=== PATIENT | female | born 1970 | race American Indian/Alaskan Native ===

== ENCOUNTER 2018-01-01 11:18 | Emergency (ER) | payer OTHER ==
--- NOTE | 2018-01-01 14:05 | Emergency Department Report ---
Chief Complaint: Dizziness Stated Complaint: POSS HIGH BP/DIZZINESS Time Seen by Provider: 01/01/18 14:00 - HPI History of Present Illness: 47-year-old female presents to the emergency department with complaint of a posterior headache and some dizziness. On Monday, 3 days ago, the patient was driving when she felt like she "blacked out for a second." She pulled up beside the road and and was able to get home. She spent the weekend trying to relax. However the headache continued and has not returned and has been throbbing ever since. She thought it could've been her blood pressure but it was not too elevated when she got here today. She has a history of insulin- dependent diabetes and said her blood sugar was about 200 prior to arrival today. She drove herself in to be seen. - ROS Review of Systems: Positive for headache, dizziness Negative for vision change, slurred speech, chest pain, shortness breath, fever - Exam Vital Signs: Vital Signs 01/01/18 12:03 Temperature 98.2 F Pulse Rate 79 Respiratory 19 Rate Blood Pressure 146/87 O2 Sat by Pulse 100 Oximetry Physical Exam: She is awake and alert in no acute distress. Pupils equal reactive to light bilaterally. Extraocular motion intact. Heart and lung sounds are normal auscultation. MSE screening note: Focused history and physical exam performed. Due to findings the following was ordered: I have ordered a CBC, BMP, TSH and a CT scan of the head. She'll have an EKG. ED Disposition for MSE Condition: Stable Referrals: PRIMARY CARE, [Primary Care Provider] - 3-5 Days
[2018-01-01 14:22] LABS: Basophils # (Auto) 0.1 K/mm3 (0.0-0.1); Basophils % (Auto) 0.7 % (0.0-1.8); Eosinophils # (Auto) 0.2 K/mm3 (0.0-0.4); Eosinophils % (Auto) 2.7 % (0.0-4.3); Hematocrit 37.1 % (30.3-42.9); Lymphocytes # (Auto) 3.2 K/mm3 (1.2-5.4); Lymphocytes % (Auto) 37.4 % (13.4-35.0); Mean Corpuscular HGB Conc 32 % (30-34); Mean Corpuscular Volume 74 fl (79-97); Monocytes # (Auto) 0.5 K/mm3 (0.0-0.8); Monocytes % (Auto) 5.7 % (0.0-7.3); Platelet Count 312 K/mm3 (140-440); Red Blood Count 5.01 M/mm3 (3.65-5.03); Red Cell Distribution Width 16.4 % (13.2-15.2)
[2018-01-01 14:27] LABS: Mean Corpuscular Hemoglobin 24 pg (28-32)
[2018-01-01 14:44] LABS: BUN/Creatinine Ratio 20; Blood Urea Nitrogen 6 mg/dL (7-17); Hemolysis Index 5
--- NOTE | 2018-01-01 15:02 | Cat Scan Report ---
CT HEAD WITHOUT CONTRAST: HISTORY: Headache, dizziness. TECHNIQUE: Sequential 2.5mm CT images. COMPARISON: none. FINDINGS: Cerebral Parenchyma: Chronic focal infarct in the anterior right basal ganglia measures 2.1 x 1.5 cm. The remaining brain parenchyma is within normal limits. The john-white interface is well-defined. Cerebellum: Within normal limits. Brainstem: Within normal limits. Ventricles: Normal. Sella: Normal. Extra-axial spaces: Normal. Basal Cisterns: Normal. Intracranial Hemorrhage: None. Midline Shift: None. Calvarium: Normal. Sinuses: Normal. Mastoid Air Cells: Normal. Visualized Orbits: Normal. IMPRESSION: No acute intracranial process. Chronic infarct in the right anterior basal ganglia.
[2018-01-01] MEDS ORDERED: TORADOL IM ONE (15:09)
--- NOTE | 2018-01-01 15:30 | Emergency Department Report ---
HPI - General Chief Complaint: Dizziness Time Seen by Provider: 01/01/18 14:00 - HPI HPI: 47-year-old female presents to the emergency department with complaint of a posterior headache and some dizziness. On Monday, 3 days ago, the patient was driving when she felt like she "blacked out for a second." She pulled up beside the road and and was able to get home. She spent the weekend trying to relax. However the headache continued while driving on her way to work today a has been throbbing ever since. It is 5 out of 10 in intensity. She thought it could've been due to her blood pressure but it was not too elevated when she got here today. She has a history of insulin-dependent diabetes and said her blood sugar was about 200 prior to arrival today. She drove herself in to be seen. ED Past Medical Hx - Past Medical History Previous Medical History?: Yes Hx Diabetes: Yes - Surgical History Past Surgical History?: Yes Additional Surgical History: Tubal ligation,Utrine ablation,Gallbladder - Social History Smoking Status: Never Smoker Substance Use Type: None - Medications Home Medications: Home Medications Medication Instructions Recorded Confirmed Last Taken Type HYDROcodone/APAP 5-325 [Frederic 1 each PO Q6HR PRN #8 tablet 01/01/18 Unknown Rx 5/325] ED Review of Systems ROS: Stated complaint: POSS HIGH BP/DIZZINESS Other details as noted in HPI Comment: All other systems reviewed and negative Constitutional: denies: chills, fever Eyes: denies: eye pain, eye discharge, vision change ENT: denies: ear pain, throat pain Respiratory: denies: cough, shortness of breath, wheezing Cardiovascular: denies: chest pain, palpitations Gastrointestinal: denies: abdominal pain, nausea, diarrhea Genitourinary: denies: urgency, dysuria, discharge Musculoskeletal: denies: back pain, joint swelling, arthralgia Skin: denies: rash, lesions Neurological: headache, other (dizziness) Physical Exam - Physical Exam Vital Signs: Vital Signs 01/01/18 12:03 Temperature 98.2 F Pulse Rate 79 Respiratory 19 Rate Blood Pressure 146/87 O2 Sat by Pulse 100 Oximetry Physical Exam: GENERAL: The patient is well-developed well-nourished. HENT: Normocephalic. Atraumatic. Patient has moist mucous membranes. EYES: Extraocular motions are intact. Pupils equal reactive to light bilaterally. No nystagmus. NECK: Supple. Trachea is midline. CHEST/LUNGS: Clear to auscultation. There is no respiratory distress noted. HEART/CARDIOVASCULAR: Regular. There is no tachycardia. There is no murmur. ABDOMEN: Abdomen is soft, nontender. Patient has normal bowel sounds. There is no abdominal distention. SKIN: Skin is warm and dry. NEURO: The patient is awake, alert, and oriented. The patient is cooperative. The patient has no focal neurologic deficits. The patient has normal speech and gait. Cranial nerves II through XII grossly intact. MUSCULOSKELETAL: There is no tenderness or deformity. There is no limitation range of motion. There is no evidence of acute injury. ED Course Vital Signs 01/01/18 12:03 Temperature 98.2 F Pulse Rate 79 Respiratory 19 Rate Blood Pressure 146/87 O2 Sat by Pulse 100 Oximetry ED Medical Decision Making - Lab Data Result diagrams: 01/01/18 14:13 01/01/18 14:13 - EKG Data -: EKG Interpreted by Sd EKG shows normal: sinus rhythm (with PACs), axis, intervals, QRS complexes, ST- T waves Rate: normal - EKG Data When compared to previous EKG there are: previous EKG unavailable Interpretation: normal EKG - Radiology Data Radiology results: report reviewed CT HEAD WITHOUT CONTRAST: HISTORY: Headache, dizziness. TECHNIQUE: Sequential 2.5mm CT images. COMPARISON: none. FINDINGS: Cerebral Parenchyma: Chronic focal infarct in the anterior right basal ganglia measures 2.1 x 1.5 cm. The remaining brain parenchyma is within normal limits. The john-white interface is well-defined. Cerebellum: Within normal limits. Brainstem: Within normal limits. Ventricles: Normal. Sella: Normal. Extra-axial spaces: Normal. Basal Cisterns: Normal. Intracranial Hemorrhage: None. Midline Shift: None. Calvarium: Normal. Sinuses: Normal. Mastoid Air Cells: Normal. Visualized Orbits: Normal. IMPRESSION: No acute intracranial process. Chronic infarct in the right anterior basal ganglia. Transcribed By: TTR Dictated By: YANIRA CAMPBELL JR, MD Electronically Authenticated By: YANIRA CAMPBELL JR, MD Signed Date/Time: 01/01/18 7610 - Medical Decision Making Patient comes into the emergency department with a complaint of a throbbing posterior headache. A few days ago she had some nonspecific episode where she may have passed out or "blacked out" for a few seconds and had some dizziness at that time but the dizziness has since resolved. On examination she does not have any focal, motor or sensory deficits in her cranial nerves are intact. Labs are unremarkable including no signs of infection, electrolyte abnormalities , renal insufficiency. The blood sugar is reasonable despite her diabetes at 150. Normal thyroid function. EKG does not show any signs of ST elevation GA, ischemia or dysrhythmia. CT of the head does not show any acute bleed, shift, mass but does show an incidental finding of a chronic right basal ganglion infarct. These results were discussed with the patient and she understands that there is no sign of any acute bleed or any acute CVA. Her headache is down to about a 5 out of 10 prior to getting any medication or treatment for it. Once the CT results did not show any bleed she was given a shot of Toradol and given a prescription for home for some pain medication. She was given a referral for neurology to evaluate her headaches but she was encouraged to return to the emergency department immediately with any worsening of her symptoms, any neurological deficits or with any acute distress. She understands and agrees to the plan. - Differential Diagnosis tension headache, migraine, cluster headache, brain bleed Critical Care Time: No Critical care attestation.: If time is entered above; I have spent that time in minutes in the direct care of this critically ill patient, excluding procedure time. ED Disposition Clinical Impression: Headache Qualifiers: Headache type: unspecified Headache chronicity pattern: episodic headache Intractability: not intractable Qualified Code(s): R51 - Headache Disposition: DC-01 TO HOME OR SELFCARE Is pt being admited?: No Condition: Stable Instructions: Acute Headache (ED), Dizziness (ED) Additional Instructions: Please follow-up with your primary care physician in the next few days. I have given you a referral to a local neurologist, Dr. Smith, to follow up regarding your headaches. Return to the emergency department immediately with any worsening of your symptoms, any signs of neurological deficits such as slurred speech, weakness, numbness, development of chest pain or shortness of breath, or with any acute distress. You have been prescribed a medication that is sedating and therefore should not be taken prior to driving, working, and responsible for children and in no way should be mixed with alcohol of any quantity. Prescriptions: HYDROcodone/APAP 5-325 [Frederic 5/325] 1 each PO Q6HR PRN #8 tablet PRN Reason: Pain Referrals: RUTH SMITH MD [Staff Physician] - 2-3 Days PRIMARY CARE, [Primary Care Provider] - 2-3 Days Forms: Work/School Release Form(ED) Time of Disposition: 15:34
[2018-01-01 15:31] VITALS: BP 138/92
== END 2018-01-01 15:43 | disposition home or self-care (01) ==
LOC: ED 11:18
DX: R51 Headache (principal); R42 Dizziness and giddiness; E11.9 Type 2 diabetes mellitus without complications; Z79.4 Long term (current) use of insulin; Z98.51 Tubal ligation status
CPT/HCPCS: 36415; 70450; 80048; 84443; 85025; 93005; 93010; 96372; 99284; J1885; 99283

== ENCOUNTER 2019-08-12 06:01 | Day surgery (SDC) | payer OTHER ==
[2019-08-12] MEDS ORDERED: SODIUM CHLORIDE 0.9% 1000 ML 1,000 ML IV SCH (07:15)
[2019-08-12] MEDS ORDERED: LIDOCAINE MPF (2%) 20 MG/1 ML VIAL 5 ML ONE (07:30)
--- NOTE | 2019-08-12 07:40 | Anesthesia Consultation ---
Anesthesia Consult and Med Hx Date of service: 08/12/19 - Airway Anesthetic Teeth Evaluation: Good (some missing teeth) ROM Head & Neck: Adequate Mental/Hyoid Distance: Adequate Mallampati Class: Class III Intubation Access Assessment: Possibly Difficult - Pre-Operative Health Status ASA Pre-Surgery Classification: ASA3 Proposed Anesthetic Plan: MAC - Endocrine Hx Renal Disease: Yes Hx Insulin Dependent Diabetes: Yes - Other Systems Hx Obesity: Yes (BMI 41.3)
--- NOTE | 2019-08-12 07:40 | Anesthesia Day of Surgery ---
Anesthesia Day of Surgery - Day of Surgery Patient Examined: Yes Patient H&P Reviewed: Yes Patient is NPO: Yes
[2019-08-12] MEDS ORDERED: PROPOFOL 200 MG/20 ML VIAL IV ONE ×2 (07:42)
[2019-08-12] MEDS ORDERED: INSULIN REGULAR, HUMAN 100 UNITS/1 ML ONE (07:44)
[2019-08-12] MEDS ORDERED: LIDOCAINE (2%) 20 MG/1 ML VIAL 20 ML MDV INFILTRATI ONE (07:48)
[2019-08-12] MEDS ORDERED: WATER FOR IRRIG STERILE 250 ML BOTTLE IR ONE (07:48)
[2019-08-12] MEDS ORDERED: WATER FOR IRRIG STERILE 1,000 ML BOTTLE ONE (07:49)
[2019-08-12] MEDS ORDERED: INSULIN REGULAR, HUMAN 100 UNITS/1 ML IV ONE (08:00)
--- NOTE | 2019-08-12 08:25 | Operative Report ---
Operative Report Operative Report: DOS: 08/12/2019 SURGEON: Nagi Magallon MD COLONOSCOPY WITH SNARE POLYPECTOMY AND BIOPSY POLYPECTOMY REPORT PREOPERATIVE AND POSTOPERATIVE DIAGNOSIS: Screening colonoscopy DESCRIPTION OF PROCEDURE: The colonoscope was passed to the terminal ileum as identified by the ileal tissue. Scope was carefully withdrawn. Retroflexion was performed in the rectum. At the end of procedure, the scope was cleaned using normal technique. Vital signs monitored continuously throughout. SEDATION: Provided by Anesthesiology Services. Quality of the prep was good COMPLICATIONS: None. ESTIMATED BLOOD LOSS: Minimal FINDINGS: * Normal terminal ileum * 4 mm sessile polyp in the ascending colon removed by cold snare polypectomy * 3 mm sessile polyp in the sigmoid colon, removed by cold biopsy polypectomy * Remainder of exam was unremarkable RECOMMENDATIONS: * Repeat colonoscopy in 5-10 years, based upon pathology results
[2019-08-12 08:57] VITALS: BP 116/77
--- NOTE | 2019-08-12 09:52 | Post Anesthesia Evaluation ---
- Post Anesthesia Evaluation Patient Participated: Yes Airway Patent: Yes Stable Respiratory Function: Yes Nausea/Vomiting: No Temp > 96.8F: Yes Pain Manageable: Yes Adequeate Hydration: Yes Anesthesia Complications: No
== END 2019-08-12 06:02 | disposition home or self-care (01) ==
LOC: GIO 06:01
PROVIDERS: ATTEND Student in an Organized Health Care Education/Training Program
DX: Z12.11 Encounter for screening for malignant neoplasm of colon (principal); D12.5 Benign neoplasm of sigmoid colon; D12.2 Benign neoplasm of ascending colon; E11.22 Type 2 diabetes mellitus with diabetic chronic kidney disease; N18.9 Chronic kidney disease, unspecified; E66.9 Obesity, unspecified; Z68.41 Body mass index [BMI] 40.0-44.9, adult; Z79.84 Long term (current) use of oral hypoglycemic drugs; Z79.899 Other long term (current) drug therapy; Z90.49 Acquired absence of other specified parts of digestive tract; Z98.890 Other specified postprocedural states
CPT/HCPCS: 45380; 45385; 82962; 88305; J2704; J7030; J1815